=== PATIENT | male | born 1940 | race Caucasian/White ===

== ENCOUNTER 2016-11-27 22:09 | Inpatient (IN) | payer OTHER ==
[~2016-11-27] VITALS: Ht 193 cm; Wt 145.4 kg
[2016-11-27 23:02] LABS: HEMATOCRIT 46.2 % (38.0-50.0); MCH 29.5 PG (29.0-34.0); MCHC 31.2 G/DL (30.0-36.0); MCV 94.7 FL (86-99); MEAN PLAT.VOLUME 10.8 uM^3 (9.0-12.4); PLATELET COUNT 122 K/uL (156-360); RBC DIS.WIDTH-CV 16.1 % (11.8-14.6); RBC DIS.WIDTH-SD 56.5 % (39-53); RED BLOOD COUNT 4.88 M/uL (4.00-5.50); WHITE BLOOD COUNT 14.4 K/uL (4.1-10.2)
[2016-11-27 23:03] LABS: CHLORIDE 99 mEq/L (99-109); POTASSIUM 4.8 mEq/L (3.7-5.4); SODIUM 139 mEq/L (136-147)
[2016-11-27 23:05] LABS: GLUCOSE 77 mg/dL (70-99)
[2016-11-27 23:07] LABS: ANION GAP 14 MEQ/L (2-14); TOTAL BILIRUBIN 3.5 mg/dL (0.0-1.0)
[2016-11-27 23:09] LABS: ALKALINE PHOSPHATASE 60 IU/L (3-129); GFR ESTIMATE (CALCULATED) > 59 mL/min/
[2016-11-27 23:10] LABS: UREA NITROGEN (BUN) 26 mg/dL (9-23)
[2016-11-27 23:13] LABS: LIPASE 4 U/L (1.0-51.0)
[2016-11-27 23:40] LABS: INTER. NORMALIZED RATIO 1.8; PROTHROMBIN TIME 20.8 SEC (10.2-12.9)
[2016-11-27 23:43] LABS: PTT 41.1 SEC (25-37)
[2016-11-28] VITALS (24 sets, daily range): BP systolic 73–108; BP diastolic 44–72
[2016-11-28 00:11] LABS: ADD MIUA? YES; BILIRUBIN NEGATIVE; BLOOD MODERATE; COLOR AMBER ((YELLOW)); GLUCOSE (STRIP) NEGATIVE; KETONES NEGATIVE; LEUKOCYTES MODERATE; NITRITE NEGATIVE; PROTEIN (STRIP) 100; SPECIFIC GRAVITY 1.019 (1.000-1.030)
[2016-11-28 00:49] LABS: BASE EXCESS 1.3 mEq/L (-3 to +3); BICARBONATE 28.1 mEq/L (22-26); METHEMOGLOBIN 1.1 % (0-1.5); PCO2 52 mm Hg (35-45); PO2 69 mm Hg (80-100); pH 7.34 (7.35-7.45)
[2016-11-28 00:50] LABS: COMMENTS - BLOOD GASES C+A+; DEVICE NC; O2 FLOW 2 L/MIN; SITE RR; TOTAL RESP RATE 16 resp/min
[2016-11-28 00:56] LABS: WHITE BLOOD CELLS TNTC /HPF (0-5)
[2016-11-28 00:57] LABS: BACTERIA 3+ /HPF; EPITHELIAL CELLS RARE /HPF; MUCUS TRACE /LPF; UCUL ADDED? YES
[2016-11-28 00:58] LABS: CASTS NONE SEEN /LPF; CRYSTALS NONE SEEN
[2016-11-28] MEDS ORDERED: BACTRIM,SEPT1 TABLET PO (04:04)
[2016-11-28] MEDS ORDERED: LASIX20 MG PO (04:05)
[2016-11-28] MEDS ORDERED: COZAAR50 MG PO (04:06)
[2016-11-28] MEDS ORDERED: TYLENOL EXTRA500 MG PO (04:06)
[2016-11-28] MEDS ORDERED: LOPRESSOR25 MG PO (04:08)
[2016-11-28] MEDS ORDERED: COLACE100 MG PO (04:09)
[2016-11-28] MEDS ORDERED: ZOCOR10 MG PO (04:09)
[2016-11-28] MEDS ORDERED: PRILOSEC20 MG PO (04:09)
[2016-11-28] MEDS ORDERED: VENTOLIN HFA18 GM IH (04:10)
[2016-11-28 04:59] LABS: METH RESISTANT S AUREUS PCR POSITIVE (NEGATIVE)
[2016-11-28 05:00] LABS: PROBE CHECK PASS
[2016-11-28 08:46] LABS: EOSINOPHIL (%) 0 % (0-5); HEMATOCRIT 43.7 % (38.0-50.0); IMMATURE GRANULOCYTE (%) 0.5 % (0.0-0.7); IMMATURE GRANULOCYTE COUNT 0.1 K/uL; INSTRUMENT ABS NEUTROPHIL CT 10.8 K/uL; LYMPHOCYTE COUNT 0.6 K/uL (1.0-2.8); MCH 30.6 PG (29.0-34.0); MCHC 31.4 G/DL (30.0-36.0); MCV 97.8 FL (86-99); MEAN PLAT.VOLUME 11.3 uM^3 (9.0-12.4); MONOCYTE (%) 10.5 % (3-12); MONOCYTE COUNT 1.4 K/uL (0-0.8); NEUTROPHIL (%) 83.8 % (45-76); NEUTROPHIL COUNT 10.8 K/uL (1.8-6.4); PLATELET COUNT 104 K/uL (156-360); RBC DIS.WIDTH-CV 16.6 % (11.8-14.6); RBC DIS.WIDTH-SD 59.1 % (39-53); RED BLOOD COUNT 4.47 M/uL (4.00-5.50); WHITE BLOOD COUNT 12.9 K/uL (4.1-10.2)
[2016-11-28 09:11] LABS: ALKALINE PHOSPHATASE 50 IU/L (3-129); ANION GAP 7 MEQ/L (2-14); CHLORIDE 100 MEQ/L (99-109); GFR ESTIMATE (CALCULATED) > 59 mL/min/; GLUCOSE 91 mg/dL (70-99); SAMPLE HEMOLYSIS CHECK 0; SAMPLE ICTERIC CHECK 0; SAMPLE LIPEMIA CHECK 0; SODIUM 137 MEQ/L (136-147); TOTAL BILIRUBIN 2.7 MG/DL (0.0-1.0); UREA NITROGEN (BUN) 27 mg/dL (9-23)
[2016-11-28 15:59] LABS: TROP-I INTERPRETATION INDETERMINATE; TROPONIN-I 0.58 ng/mL (0.0-0.30)
[2016-11-29] VITALS (24 sets, daily range): BP systolic 86–129; BP diastolic 44–103
[2016-11-29 04:58] LABS: EOSINOPHIL (%) 0.2 % (0-5); HEMATOCRIT 46.7 % (38.0-50.0); IMMATURE GRANULOCYTE (%) 0.4 % (0.0-0.7); IMMATURE GRANULOCYTE COUNT 0.1 K/uL; INSTRUMENT ABS NEUTROPHIL CT 10.2 K/uL; LYMPHOCYTE COUNT 0.8 K/uL (1.0-2.8); MCH 29.5 PG (29.0-34.0); MCV 98.5 FL (86-99); MEAN PLAT.VOLUME 10.9 uM^3 (9.0-12.4); MONOCYTE (%) 9.9 % (3-12); MONOCYTE COUNT 1.2 K/uL (0-0.8); NEUTROPHIL (%) 83.2 % (45-76); NEUTROPHIL COUNT 10.2 K/uL (1.8-6.4); PLATELET COUNT 117 K/uL (156-360); RBC DIS.WIDTH-CV 16.2 % (11.8-14.6); RBC DIS.WIDTH-SD 59.5 % (39-53); RED BLOOD COUNT 4.74 M/uL (4.00-5.50); WHITE BLOOD COUNT 12.3 K/uL (4.1-10.2)
[2016-11-29 05:00] LABS: CHLORIDE 101 mEq/L (99-109); POTASSIUM 4.7 mEq/L (3.7-5.4); SODIUM 137 mEq/L (136-147)
[2016-11-29 05:02] LABS: GLUCOSE 96 mg/dL (70-99)
[2016-11-29 05:03] LABS: ANION GAP 9 MEQ/L (2-14)
[2016-11-29 05:05] LABS: ALKALINE PHOSPHATASE 57 IU/L (3-129)
[2016-11-29 05:06] LABS: GFR ESTIMATE (CALCULATED) > 59 mL/min/
[2016-11-29 05:07] LABS: UREA NITROGEN (BUN) 32 mg/dL (9-23)
[2016-11-29 05:08] LABS: TOTAL BILIRUBIN 2.2 mg/dL (0.0-1.0); TROP-I INTERPRETATION INDETERMINATE; TROPONIN-I 0.44 ng/mL (0.0-0.30)
[2016-11-30] VITALS (15 sets, daily range): BP systolic 91–132; BP diastolic 57–86
[2016-11-30 12:43] LABS: EOSINOPHIL (%) 1.3 % (0-5); EOSINOPHIL COUNT 0.1 K/uL (0-0.3); HEMATOCRIT 47.6 % (38.0-50.0); IMMATURE GRANULOCYTE (%) 0.5 % (0.0-0.7); LYMPHOCYTE COUNT 0.6 K/uL (1.0-2.8); MCH 29.3 PG (29.0-34.0); MCHC 29.2 G/DL (30.0-36.0); MCV 100.4 FL (86-99); MEAN PLAT.VOLUME 10.7 uM^3 (9.0-12.4); MONOCYTE (%) 14.9 % (3-12); MONOCYTE COUNT 1.2 K/uL (0-0.8); NEUTROPHIL (%) 75.5 % (45-76); PLATELET COUNT 124 K/uL (156-360); RBC DIS.WIDTH-CV 16.2 % (11.8-14.6); RBC DIS.WIDTH-SD 60.9 % (39-53); RED BLOOD COUNT 4.74 M/uL (4.00-5.50); WHITE BLOOD COUNT 7.9 K/uL (4.1-10.2)
[2016-11-30 13:22] LABS: ANION GAP 6 MEQ/L (2-14); CHLORIDE 101 MEQ/L (99-109); GFR ESTIMATE (CALCULATED) > 59 mL/min/; GLUCOSE 100 mg/dL (70-99); POTASSIUM 4.7 MEQ/L (3.7-5.4); SAMPLE HEMOLYSIS CHECK 0; SAMPLE ICTERIC CHECK 0; SAMPLE LIPEMIA CHECK 0; SODIUM 138 MEQ/L (136-147); UREA NITROGEN (BUN) 31 mg/dL (9-23)
[2016-12-01] VITALS (7 sets, daily range): BP systolic 105–138; BP diastolic 55–82
[2016-12-01 05:10] LABS: EOSINOPHIL (%) 0 % (0-5); HEMATOCRIT 47.5 % (38.0-50.0); IMMATURE GRANULOCYTE (%) 0.7 % (0.0-0.7); INSTRUMENT ABS NEUTROPHIL CT 5.2 K/uL; LYMPHOCYTE COUNT 0.2 K/uL (1.0-2.8); MCH 30.2 PG (29.0-34.0); MCHC 30.1 G/DL (30.0-36.0); MCV 100.4 FL (86-99); MEAN PLAT.VOLUME 11.5 uM^3 (9.0-12.4); MONOCYTE (%) 2.2 % (3-12); MONOCYTE COUNT 0.1 K/uL (0-0.8); NEUTROPHIL (%) 93.7 % (45-76); NEUTROPHIL COUNT 5.2 K/uL (1.8-6.4); PLATELET COUNT 119 K/uL (156-360); RBC DIS.WIDTH-CV 16.1 % (11.8-14.6); RBC DIS.WIDTH-SD 60.3 % (39-53); RED BLOOD COUNT 4.73 M/uL (4.00-5.50); WHITE BLOOD COUNT 5.5 K/uL (4.1-10.2)
[2016-12-01 05:29] LABS: TROP-I INTERPRETATION NEGATIVE; TROPONIN-I 0.14 ng/mL (0.0-0.30)
[2016-12-01 05:35] LABS: ANION GAP 5 MEQ/L (2-14); CHLORIDE 101 MEQ/L (99-109); GFR ESTIMATE (CALCULATED) > 59 mL/min/; GLUCOSE 136 mg/dL (70-99); POTASSIUM 4.9 MEQ/L (3.7-5.4); SAMPLE HEMOLYSIS CHECK 0; SAMPLE ICTERIC CHECK 0; SAMPLE LIPEMIA CHECK 0; SODIUM 138 MEQ/L (136-147); UREA NITROGEN (BUN) 28 mg/dL (9-23)
[2016-12-02 03:00] VITALS: BP 119/73
[2016-12-02 07:32] LABS: EOSINOPHIL (%) 0 % (0-5); IMMATURE GRANULOCYTE (%) 0.5 % (0.0-0.7); IMMATURE GRANULOCYTE COUNT 0.1 K/uL; INSTRUMENT ABS NEUTROPHIL CT 9.5 K/uL; LYMPHOCYTE COUNT 0.3 K/uL (1.0-2.8); MCH 30.6 PG (29.0-34.0); MCHC 31.8 G/DL (30.0-36.0); MONOCYTE (%) 5.3 % (3-12); MONOCYTE COUNT 0.6 K/uL (0-0.8); NEUTROPHIL (%) 91.4 % (45-76); NEUTROPHIL COUNT 9.5 K/uL (1.8-6.4); PLATELET COUNT 133 K/uL (156-360); RBC DIS.WIDTH-CV 16.3 % (11.8-14.6); RBC DIS.WIDTH-SD 57.4 % (39-53); RED BLOOD COUNT 4.57 M/uL (4.00-5.50); WHITE BLOOD COUNT 10.4 K/uL (4.1-10.2)
[2016-12-02 07:37] LABS: MCV 96.3 FL (86-99)
[2016-12-02 07:42] LABS: ANION GAP 6 MEQ/L (2-14); CHLORIDE 100 MEQ/L (99-109); GFR ESTIMATE (CALCULATED) > 59 mL/min/; GLUCOSE 129 mg/dL (70-99); POTASSIUM 4.5 MEQ/L (3.7-5.4); SAMPLE HEMOLYSIS CHECK 0; SAMPLE ICTERIC CHECK 0; SAMPLE LIPEMIA CHECK 0; SODIUM 138 MEQ/L (136-147); UREA NITROGEN (BUN) 37 mg/dL (9-23)
[2016-12-02 08:42] VITALS: BP 108/66
[2016-12-02 09:41] LABS: BASE EXCESS 7.5 mEq/L (-3 to +3); BICARBONATE 34.9 mEq/L (22-26); COMMENTS - BLOOD GASES A+C+; METHEMOGLOBIN 1.6 % (0-1.5); PCO2 59 mm Hg (35-45); PO2 52 mm Hg (80-100); SITE LR; pH 7.38 (7.35-7.45)
[2016-12-02 09:42] LABS: DEVICE NC; O2 FLOW 1 L/MIN
[2016-12-02 12:38] VITALS: BP 116/66
[2016-12-02 17:10] VITALS: BP 105/66
[2016-12-02 19:15] VITALS: BP 129/56
[2016-12-03] VITALS: BP 115/57
[2016-12-03 04:15] VITALS: BP 100/63
[2016-12-03 05:54] LABS: EOSINOPHIL (%) 0 % (0-5); IMMATURE GRANULOCYTE (%) 0.4 % (0.0-0.7); INSTRUMENT ABS NEUTROPHIL CT 8.3 K/uL; LYMPHOCYTE COUNT 0.3 K/uL (1.0-2.8); MCH 29.2 PG (29.0-34.0); MCHC 30.5 G/DL (30.0-36.0); MEAN PLAT.VOLUME 11.1 uM^3 (9.0-12.4); MONOCYTE (%) 7.9 % (3-12); MONOCYTE COUNT 0.7 K/uL (0-0.8); NEUTROPHIL (%) 88.6 % (45-76); NEUTROPHIL COUNT 8.3 K/uL (1.8-6.4); PLATELET COUNT 131 K/uL (156-360); RBC DIS.WIDTH-CV 16.2 % (11.8-14.6); RBC DIS.WIDTH-SD 57.1 % (39-53); RED BLOOD COUNT 4.48 M/uL (4.00-5.50); WHITE BLOOD COUNT 9.4 K/uL (4.1-10.2)
[2016-12-03 06:16] LABS: VANCOMYCIN, TROUGH 26.2 MCG/ML (10-20)
[2016-12-03 06:20] LABS: ALKALINE PHOSPHATASE 43 IU/L (3-129); ANION GAP 3 MEQ/L (2-14); CHLORIDE 100 MEQ/L (99-109); GFR ESTIMATE (CALCULATED) > 59 mL/min/; GLUCOSE 125 mg/dL (70-99); POTASSIUM 4.4 MEQ/L (3.7-5.4); SAMPLE HEMOLYSIS CHECK 0; SAMPLE ICTERIC CHECK 0; SAMPLE LIPEMIA CHECK 0; SODIUM 141 MEQ/L (136-147); UREA NITROGEN (BUN) 41 mg/dL (9-23)
[2016-12-03 08:01] LABS: BASE EXCESS 13.3 mEq/L (-3 to +3); CARBOXY HGB 2.8 % (0-5); METHEMOGLOBIN 1.7 % (0-1.5); pH 7.36 (7.35-7.45)
[2016-12-03 08:03] LABS: BICARBONATE 42.4 mEq/L (22-26); COMMENTS - BLOOD GASES A+C+; DEVICE CPAP; PCO2 75 mm Hg (35-45); PO2 72 mm Hg (80-100); SITE LR
[2016-12-03 08:04] LABS: CONTINUOUS POS AIRWAY PRESSURE 10 cm H2O; TOTAL RESP RATE 22 resp/min
[2016-12-03 08:30] VITALS: BP 94/64
[2016-12-03] MEDS ORDERED: HALDOL2 MG PO (14:34)
[2016-12-03] MEDS ORDERED: MORPHINE CON20 MG/M1 SL (14:34)
[2016-12-03] MEDS ORDERED: HYOSCYAMINE0.125 MG PO (14:34)
[2016-12-03] MEDS ORDERED: ATIVAN INTE2 MG/1 ML PO (14:34)
[2016-12-03] MEDS ORDERED: MITRAZOL 2% CRE45 GM TP (14:34)
[2016-12-03] MEDS ORDERED: PRILOSEC20 MG PO (14:34)
[2016-12-03] MEDS ORDERED: COLACE100 MG PO (14:34)
[2016-12-03 19:00] VITALS: BP 130/82
[2016-12-03 20:00] VITALS: BP 122/78
== END 2016-12-03 21:06 | DRG 871 ==
LOC: EME → EDBD 22:09 → EME 22:09 → 4WEST 11-28 02:56 → EDOF 11-28 02:56 → ENRESERV 11-28 02:58 → 4WEST 11-28 03:35 → ENRESERV 11-30 23:07 → 4WEST 11-30 23:28 → 4EAST 12-01 00:17 → ENRESERV 12-03 08:33 → 4WEST 12-03 08:35 → ENRESERV 12-03 08:35 → 4WEST 12-03 21:06
PROVIDERS: Emergency Medicine; Internal Medicine; Internal Medicine Cardiovascular Disease; Internal Medicine Critical Care Medicine; Internal Medicine Nephrology; Nurse Practitioner Family
DX: A41.9 Sepsis, unspecified organism (principal); R65.21 Severe sepsis with septic shock; J44.0 Chronic obstructive pulmonary disease with (acute) lower respiratory infection; J18.9 Pneumonia, unspecified organism; J20.9 Acute bronchitis, unspecified; J44.1 Chronic obstructive pulmonary disease with (acute) exacerbation; N39.0 Urinary tract infection, site not specified; B96.89 Other specified bacterial agents as the cause of diseases classified elsewhere; I33.0 Acute and subacute infective endocarditis; E87.2 Acidosis; E87.3 Alkalosis; E11.42 Type 2 diabetes mellitus with diabetic polyneuropathy; E86.1 Hypovolemia; G47.33 Obstructive sleep apnea (adult) (pediatric); I27.2 Other secondary pulmonary hypertension; I48.2 Chronic atrial fibrillation; I11.0 Hypertensive heart disease with heart failure; I50.9 Heart failure, unspecified; I25.9 Chronic ischemic heart disease, unspecified; I87.2 Venous insufficiency (chronic) (peripheral); M19.90 Unspecified osteoarthritis, unspecified site; I35.0 Nonrheumatic aortic (valve) stenosis; Z51.5 Encounter for palliative care; G47.10 Hypersomnia, unspecified; R10.30 Lower abdominal pain, unspecified; I44.4 Left anterior fascicular block; I42.0 Dilated cardiomyopathy; I77.0 Arteriovenous fistula, acquired; F05 Delirium due to known physiological condition; I24.8 Other forms of acute ischemic heart disease; E66.01 Morbid (severe) obesity due to excess calories; Z66 Do not resuscitate; Z68.42 Body mass index [BMI] 45.0-49.9, adult; Z87.891 Personal history of nicotine dependence; Z91.19 Patient's noncompliance with other medical treatment and regimen
CPT/HCPCS: 36600; 70450; 71010; 71250; 74177; 80048; 80053; 80200; 80202; 81003; 82140; 82803; 83605; 83690; 83735; 83880; 84484; 85025; 85027; 85610; 85651; 85730; 86140; 87040; 87077; 87086; 87186; 87641; 93005; 93306; 93971; 94640; 94640 76; 94660; 94799; 99202; 99281; 99285; C1751; J1160; J1250; J1650; J1940; J2543; J2930; J3260; J3370; J7050; J7120; J7512

== ENCOUNTER 2016-12-10 12:06 | Emergency (ER) | payer OTHER ==
[~2016-12-10] VITALS: Ht 190.5 cm; Wt 149.1 kg
[~2016-12-10 12:06] MED LIST: ATIVAN INTE2 MG/1 ML PO; BACTRIM,SEPT1 TABLET PO; COLACE100 MG PO; COZAAR50 MG PO; HALDOL2 MG PO; HYOSCYAMINE0.125 MG PO; LASIX20 MG PO; LOPRESSOR25 MG PO; MITRAZOL 2% CRE45 GM TP; MORPHINE CON20 MG/M1 SL; PRILOSEC20 MG PO; TYLENOL EXTRA500 MG PO; VENTOLIN HFA18 GM IH; ZOCOR10 MG PO
[2016-12-10 13:01] LABS: HEMATOCRIT 36.8 % (38.0-50.0); MCH 29.8 PG (29.0-34.0); MCHC 30.4 G/DL (30.0-36.0); MCV 97.9 FL (86-99); MEAN PLAT.VOLUME 11.7 uM^3 (9.0-12.4); PLATELET COUNT 120 K/uL (156-360); RBC DIS.WIDTH-CV 16.7 % (11.8-14.6); RBC DIS.WIDTH-SD 59.7 % (39-53); RED BLOOD COUNT 3.76 M/uL (4.00-5.50); WHITE BLOOD COUNT 8.4 K/uL (4.1-10.2)
[2016-12-10 13:11] LABS: CHLORIDE 98 mEq/L (99-109); POTASSIUM 4.7 mEq/L (3.7-5.4); SODIUM 143 mEq/L (136-147)
[2016-12-10 13:13] LABS: GLUCOSE 142 mg/dL (70-99)
[2016-12-10 13:14] LABS: ANION GAP 6 MEQ/L (2-14)
[2016-12-10 13:17] LABS: GFR ESTIMATE (CALCULATED) > 59 mL/min/; UREA NITROGEN (BUN) 43 mg/dL (9-23)
[2016-12-10 13:23] LABS: TROP-I INTERPRETATION NEGATIVE; TROPONIN-I 0.13 ng/mL (0.0-0.30)
[2016-12-10 16:48] VITALS: BP 108/72
== END 2016-12-10 17:26 ==
LOC: EME 12:06
PROVIDERS: Emergency Medicine
DX: R07.89 Other chest pain (principal); R60.0 Localized edema; I10 Essential (primary) hypertension; J44.9 Chronic obstructive pulmonary disease, unspecified; G47.33 Obstructive sleep apnea (adult) (pediatric); Z87.891 Personal history of nicotine dependence
CPT/HCPCS: 71010; 71275; 80048; 84484; 85027; 85379; 93005; 93971; 99281; 99285

== ENCOUNTER 2016-12-17 11:12 | Inpatient (IN) | payer OTHER ==
[~2016-12-17] VITALS: Ht 182.9 cm; Wt 153.6 kg
[2016-12-17] VITALS (9 sets, daily range): BP systolic 83–119; BP diastolic 52–77
[2016-12-17] MEDS ORDERED: TYLENOL WITH C1 EACH PO (12:02)
[2016-12-17] MEDS ORDERED: MICRO-K10 ME2 PO (12:05)
[2016-12-17 12:06] LABS: EOSINOPHIL (%) 0.8 % (0-5); EOSINOPHIL COUNT 0.1 K/uL (0-0.3); IMMATURE GRANULOCYTE (%) 0.8 % (0.0-0.7); IMMATURE GRANULOCYTE COUNT 0.1 K/uL; INSTRUMENT ABS NEUTROPHIL CT 5.1 K/uL; LYMPHOCYTE COUNT 0.5 K/uL (1.0-2.8); MCH 29.7 PG (29.0-34.0); MCHC 29.8 G/DL (30.0-36.0); MCV 99.8 FL (86-99); MEAN PLAT.VOLUME 12.4 uM^3 (9.0-12.4); MONOCYTE (%) 13.5 % (3-12); MONOCYTE COUNT 0.9 K/uL (0-0.8); NEUTROPHIL (%) 76.8 % (45-76); NEUTROPHIL COUNT 5.1 K/uL (1.8-6.4); NRBC (%) 0.5 /100 WBC (0-0); PLATELET COUNT 168 K/uL (156-360); RBC DIS.WIDTH-CV 18.6 % (11.8-14.6); RBC DIS.WIDTH-SD 65.8 % (39-53); RED BLOOD COUNT 4.51 M/uL (4.00-5.50); WHITE BLOOD COUNT 6.6 K/uL (4.1-10.2)
[2016-12-17 13:00] LABS: BASE EXCESS 9.7 mEq/L (-3 to +3); BICARBONATE 40.8 mEq/L (22-26); CARBOXY HGB 4.1 % (0-5); METHEMOGLOBIN 1.1 % (0-1.5)
[2016-12-17 13:01] LABS: COMMENTS - BLOOD GASES A+C+; DEVICE NC; O2 FLOW 5 L/MIN; PCO2 91 mm Hg (35-45); PO2 100 mm Hg (80-100); SITE LR; TOTAL RESP RATE 22 resp/min; pH 7.26 (7.35-7.45)
[2016-12-17 13:33] LABS: CHLORIDE 96 mEq/L (99-109); POTASSIUM 5.4 mEq/L (3.7-5.4); PTT 40.9 SEC (25-37); SODIUM 140 mEq/L (136-147)
[2016-12-17 13:35] LABS: GLUCOSE 81 mg/dL (70-99)
[2016-12-17 13:37] LABS: ANION GAP 15 MEQ/L (2-14); TOTAL BILIRUBIN 3.3 mg/dL (0.0-1.0)
[2016-12-17 13:39] LABS: ALKALINE PHOSPHATASE 94 IU/L (3-129); GFR ESTIMATE (CALCULATED) > 59 mL/min/
[2016-12-17 13:40] LABS: UREA NITROGEN (BUN) 48 mg/dL (9-23)
[2016-12-17 13:42] LABS: INTER. NORMALIZED RATIO 1.9; PROTHROMBIN TIME 21.1 SEC (10.2-12.9)
[2016-12-17 13:43] LABS: TROP-I INTERPRETATION NEGATIVE; TROPONIN-I 0.15 ng/mL (0.0-0.30)
[2016-12-17 14:08] LABS: ADD MIUA? YES; BILIRUBIN NEGATIVE; BLOOD SMALL; COLOR AMBER ((YELLOW)); GLUCOSE (STRIP) NEGATIVE; KETONES NEGATIVE; LEUKOCYTES NEGATIVE; NITRITE NEGATIVE; PROTEIN (STRIP) 100
[2016-12-17 14:12] LABS: BACTERIA NONE SEEN /HPF; EPITHELIAL CELLS NONE SEEN /HPF; MUCUS TRACE /LPF; RED BLOOD CELLS 0-5 /HPF (0-5); UCUL ADDED? NO; WHITE BLOOD CELLS 0-5 /HPF (0-5)
[2016-12-17 14:32] LABS: BASE EXCESS 10.1 mEq/L (-3 to +3); CARBOXY HGB 3.2 % (0-5); METHEMOGLOBIN 1.2 % (0-1.5)
[2016-12-17 14:33] LABS: PCO2 47 mm Hg (35-45); PO2 260 mm Hg (80-100); SITE LR; pH 7.48 (7.35-7.45)
[2016-12-17 14:36] LABS: COMMENTS - BLOOD GASES A+C+; FI02 60 %; MECHANICAL RATE 16 resp/min; MODE AC; PEEP 10 CM/H20; TIDAL VOLUME 600 ML; TOTAL RESP RATE 16 resp/min
[2016-12-17 19:55] LABS: METH RESISTANT S AUREUS PCR POSITIVE (NEGATIVE); PROBE CHECK PASS
[2016-12-18] VITALS (24 sets, daily range): BP systolic 90–124; BP diastolic 51–86
[2016-12-18 05:59] LABS: ALKALINE PHOSPHATASE 60 IU/L (3-129); ANION GAP 8 MEQ/L (2-14); CHLORIDE 104 MEQ/L (99-109); GFR ESTIMATE (CALCULATED) > 59 mL/min/; GLUCOSE 74 mg/dL (70-99); MAGNESIUM 1.8 mg/dl (1.3-2.7); SAMPLE HEMOLYSIS CHECK 0; SAMPLE ICTERIC CHECK 1; SAMPLE LIPEMIA CHECK 0; SODIUM 145 MEQ/L (136-147); UREA NITROGEN (BUN) 44 mg/dL (9-23)
[2016-12-18 06:00] LABS: POTASSIUM 4.3 MEQ/L (3.7-5.4)
[2016-12-18 06:06] LABS: EOSINOPHIL (%) 2.7 % (0-5); EOSINOPHIL COUNT 0.2 K/uL (0-0.3); HEMATOCRIT 44.9 % (38.0-50.0); IMMATURE GRANULOCYTE (%) 0.5 % (0.0-0.7); INSTRUMENT ABS NEUTROPHIL CT 6.2 K/uL; LYMPHOCYTE COUNT 0.4 K/uL (1.0-2.8); MCH 29.8 PG (29.0-34.0); MCV 96.1 FL (86-99); MONOCYTE COUNT 0.5 K/uL (0-0.8); NEUTROPHIL (%) 84.5 % (45-76); NEUTROPHIL COUNT 6.2 K/uL (1.8-6.4); RBC DIS.WIDTH-CV 18.8 % (11.8-14.6); RBC DIS.WIDTH-SD 62.8 % (39-53); RED BLOOD COUNT 4.67 M/uL (4.00-5.50); WHITE BLOOD COUNT 7.3 K/uL (4.1-10.2)
[2016-12-18 06:36] LABS: PLAT.SUFFICIENCY DECREASED; PLATELET CLUMPS PRESENT - PLATELET COUNTS APPEARS DECREASED
[2016-12-18 06:38] LABS: PLATELET COUNT UNABLE TO REPORT K/uL (156-360)
[2016-12-19] VITALS (24 sets, daily range): BP systolic 98–139; BP diastolic 62–86
[2016-12-19 02:48] LABS: EOSINOPHIL (%) 4.8 % (0-5); EOSINOPHIL COUNT 0.4 K/uL (0-0.3); HEMATOCRIT 43.4 % (38.0-50.0); IMMATURE GRANULOCYTE (%) 0.6 % (0.0-0.7); IMMATURE GRANULOCYTE COUNT 0.1 K/uL; INSTRUMENT ABS NEUTROPHIL CT 6.7 K/uL; LYMPHOCYTE COUNT 0.4 K/uL (1.0-2.8); MCH 29.3 PG (29.0-34.0); MCHC 30.9 G/DL (30.0-36.0); MEAN PLAT.VOLUME 11.4 uM^3 (9.0-12.4); MONOCYTE (%) 9.3 % (3-12); MONOCYTE COUNT 0.8 K/uL (0-0.8); NEUTROPHIL (%) 79.6 % (45-76); NEUTROPHIL COUNT 6.7 K/uL (1.8-6.4); RBC DIS.WIDTH-CV 19.6 % (11.8-14.6); RED BLOOD COUNT 4.57 M/uL (4.00-5.50); WHITE BLOOD COUNT 8.4 K/uL (4.1-10.2)
[2016-12-19 02:49] LABS: PLATELET COUNT 87 K/uL (156-360)
[2016-12-19 03:05] LABS: MAGNESIUM 1.5 mg/dL (1.3-2.7)
[2016-12-19 09:11] LABS: BASE EXCESS 7.2 mEq/L (-3 to +3); BICARBONATE 33.1 mEq/L (22-26); CARBOXY HGB 3.2 % (0-5); METHEMOGLOBIN 1.6 % (0-1.5); PCO2 51 mm Hg (35-45); pH 7.42 (7.35-7.45)
[2016-12-19 09:12] LABS: COMMENTS - BLOOD GASES C+; DEVICE VENT; FI02 30 %; MODE SPONT; PEEP 5 CM/H20; PO2 83 mm Hg (80-100); PRES. SUPPORT 12 CM/H2O; SITE RR; TIDAL VOLUME 450 ML; TOTAL RESP RATE 22 resp/min
[2016-12-19 10:38] LABS: ANION GAP 20 MEQ/L (2-14); CHLORIDE 112 MEQ/L (99-109); GFR ESTIMATE (CALCULATED) > 59 mL/min/; GLUCOSE 74 mg/dL (70-99); POTASSIUM 4.6 MEQ/L (3.7-5.4); UREA NITROGEN (BUN) 36 mg/dL (9-23)
[2016-12-19 10:41] LABS: SODIUM 154 MEQ/L (136-147)
[2016-12-20] VITALS (24 sets, daily range): BP systolic 87–131; BP diastolic 57–80
[2016-12-20 07:37] LABS: EOSINOPHIL (%) 7.8 % (0-5); EOSINOPHIL COUNT 0.6 K/uL (0-0.3); HEMATOCRIT 38.6 % (38.0-50.0); IMMATURE GRANULOCYTE (%) 0.4 % (0.0-0.7); INSTRUMENT ABS NEUTROPHIL CT 5.4 K/uL; LYMPHOCYTE COUNT 0.4 K/uL (1.0-2.8); MCH 29.7 PG (29.0-34.0); MCHC 30.3 G/DL (30.0-36.0); MEAN PLAT.VOLUME 11.8 uM^3 (9.0-12.4); MONOCYTE (%) 11.4 % (3-12); MONOCYTE COUNT 0.8 K/uL (0-0.8); NEUTROPHIL (%) 74.1 % (45-76); NEUTROPHIL COUNT 5.4 K/uL (1.8-6.4); PLATELET COUNT 86 K/uL (156-360); RBC DIS.WIDTH-CV 19.1 % (11.8-14.6); RBC DIS.WIDTH-SD 66.5 % (39-53); RED BLOOD COUNT 3.94 M/uL (4.00-5.50); WHITE BLOOD COUNT 7.3 K/uL (4.1-10.2)
[2016-12-20 08:13] LABS: ANION GAP 8 MEQ/L (2-14); CHLORIDE 105 MEQ/L (99-109); GFR ESTIMATE (CALCULATED) > 59 mL/min/; GLUCOSE 74 mg/dL (70-99); POTASSIUM 3.8 MEQ/L (3.7-5.4); SAMPLE HEMOLYSIS CHECK 0; SAMPLE ICTERIC CHECK 0; SAMPLE LIPEMIA CHECK 0; UREA NITROGEN (BUN) 24 mg/dL (9-23)
[2016-12-20 08:19] LABS: MAGNESIUM 2.2 mg/dl (1.3-2.7); SODIUM 142 MEQ/L (136-147)
[2016-12-20 23:06] LABS: Heparin Induced Plt Ab Negative (Negative)
[2016-12-21] VITALS (19 sets, daily range): BP systolic 87–129; BP diastolic 51–72
[2016-12-21 08:43] LABS: HEMATOCRIT 39.7 % (38.0-50.0); MCH 29.6 PG (29.0-34.0); MCV 98.8 FL (86-99); MEAN PLAT.VOLUME 11.7 uM^3 (9.0-12.4); PLATELET COUNT 85 K/uL (156-360); RBC DIS.WIDTH-CV 18.9 % (11.8-14.6); RBC DIS.WIDTH-SD 67.9 % (39-53); RED BLOOD COUNT 4.02 M/uL (4.00-5.50); WHITE BLOOD COUNT 6.5 K/uL (4.1-10.2)
[2016-12-21 09:06] LABS: ANION GAP 6 MEQ/L (2-14); CHLORIDE 104 MEQ/L (99-109); GFR ESTIMATE (CALCULATED) > 59 mL/min/; GLUCOSE 90 mg/dL (70-99); POTASSIUM 3.6 MEQ/L (3.7-5.4); SAMPLE HEMOLYSIS CHECK 0; SAMPLE ICTERIC CHECK 0; SAMPLE LIPEMIA CHECK 0; SODIUM 145 MEQ/L (136-147); UREA NITROGEN (BUN) 24 mg/dL (9-23)
[2016-12-21 15:54] LABS: UFH SRA Result Negative (Negative)
[2016-12-22] VITALS (17 sets, daily range): BP systolic 99–158; BP diastolic 61–96
[2016-12-22 09:15] LABS: EOSINOPHIL (%) 10.7 % (0-5); EOSINOPHIL COUNT 0.7 K/uL (0-0.3); HEMATOCRIT 38.2 % (38.0-50.0); IMMATURE GRANULOCYTE (%) 0.3 % (0.0-0.7); LYMPHOCYTE COUNT 0.5 K/uL (1.0-2.8); MCH 29.9 PG (29.0-34.0); MCHC 30.1 G/DL (30.0-36.0); MCV 99.5 FL (86-99); MEAN PLAT.VOLUME 11.5 uM^3 (9.0-12.4); MONOCYTE (%) 17.2 % (3-12); MONOCYTE COUNT 1.1 K/uL (0-0.8); PLATELET COUNT 88 K/uL (156-360); RBC DIS.WIDTH-CV 18.9 % (11.8-14.6); RED BLOOD COUNT 3.84 M/uL (4.00-5.50); WHITE BLOOD COUNT 6.3 K/uL (4.1-10.2)
[2016-12-22 09:32] LABS: ANION GAP 7 MEQ/L (2-14); CHLORIDE 104 MEQ/L (99-109); MAGNESIUM 1.9 mg/dl (1.3-2.7); POTASSIUM 3.5 MEQ/L (3.7-5.4); SAMPLE HEMOLYSIS CHECK 0; SAMPLE ICTERIC CHECK 0; SAMPLE LIPEMIA CHECK 0; SODIUM 144 MEQ/L (136-147)
[2016-12-22 09:38] LABS: GFR ESTIMATE (CALCULATED) > 59 mL/min/; GLUCOSE 103 mg/dL (70-99); UREA NITROGEN (BUN) 25 mg/dL (9-23)
[2016-12-23] VITALS (22 sets, daily range): BP systolic 76–144; BP diastolic 47–90
[2016-12-23 07:25] LABS: EOSINOPHIL (%) 5.2 % (0-5); EOSINOPHIL COUNT 0.3 K/uL (0-0.3); HEMATOCRIT 38.7 % (38.0-50.0); IMMATURE GRANULOCYTE (%) 0.8 % (0.0-0.7); IMMATURE GRANULOCYTE COUNT 0.1 K/uL; INSTRUMENT ABS NEUTROPHIL CT 4.5 K/uL; LYMPHOCYTE COUNT 0.3 K/uL (1.0-2.8); MCH 29.8 PG (29.0-34.0); MCHC 29.7 G/DL (30.0-36.0); MCV 100.3 FL (86-99); MEAN PLAT.VOLUME 10.6 uM^3 (9.0-12.4); MONOCYTE (%) 15.6 % (3-12); NEUTROPHIL (%) 72.5 % (45-76); NEUTROPHIL COUNT 4.5 K/uL (1.8-6.4); PLATELET COUNT 89 K/uL (156-360); RBC DIS.WIDTH-CV 18.7 % (11.8-14.6); RBC DIS.WIDTH-SD 67.7 % (39-53); RED BLOOD COUNT 3.86 M/uL (4.00-5.50); WHITE BLOOD COUNT 6.1 K/uL (4.1-10.2)
[2016-12-23 07:46] LABS: ALKALINE PHOSPHATASE 52 IU/L (3-129); ANION GAP 5 MEQ/L (2-14); CHLORIDE 105 MEQ/L (99-109); GFR ESTIMATE (CALCULATED) > 59 mL/min/; GLUCOSE 111 mg/dL (70-99); MAGNESIUM 1.8 mg/dl (1.3-2.7); POTASSIUM 3.9 MEQ/L (3.7-5.4); SAMPLE HEMOLYSIS CHECK 1; SAMPLE ICTERIC CHECK 0; SAMPLE LIPEMIA CHECK 0; SODIUM 142 MEQ/L (136-147); UREA NITROGEN (BUN) 28 mg/dL (9-23)
[2016-12-24] VITALS (23 sets, daily range): BP systolic 96–160; BP diastolic 55–85
[2016-12-24 05:58] LABS: HEMATOCRIT 35.4 % (38.0-50.0); MCH 30.2 PG (29.0-34.0); MCHC 29.9 G/DL (30.0-36.0); MCV 100.9 FL (86-99); MEAN PLAT.VOLUME 11.6 uM^3 (9.0-12.4); PLATELET COUNT 90 K/uL (156-360); RBC DIS.WIDTH-CV 18.9 % (11.8-14.6); RBC DIS.WIDTH-SD 69.2 % (39-53); RED BLOOD COUNT 3.51 M/uL (4.00-5.50); WHITE BLOOD COUNT 6.9 K/uL (4.1-10.2)
[2016-12-24 06:29] LABS: ANION GAP 3 MEQ/L (2-14); CHLORIDE 104 MEQ/L (99-109); GFR ESTIMATE (CALCULATED) > 59 mL/min/; GLUCOSE 155 mg/dL (70-99); POTASSIUM 3.8 MEQ/L (3.7-5.4); SAMPLE HEMOLYSIS CHECK 0; SAMPLE ICTERIC CHECK 0; SAMPLE LIPEMIA CHECK 0; SODIUM 140 MEQ/L (136-147); UREA NITROGEN (BUN) 37 mg/dL (9-23)
[2016-12-24 06:38] LABS: MAGNESIUM 2.1 mg/dl (1.3-2.7)
[2016-12-24 14:39] LABS: BASE EXCESS 12.3 mEq/L (-3 to +3); CARBOXY HGB 2.6 % (0-5); METHEMOGLOBIN 1.5 % (0-1.5); PO2 86 mm Hg (80-100); pH 7.33 (7.35-7.45)
[2016-12-24 14:41] LABS: PCO2 77 mm Hg (35-45)
[2016-12-24 14:42] LABS: BICARBONATE 40.6 mEq/L (22-26); COMMENTS - BLOOD GASES C+; DEVICE VENT; FI02 30 %; MODE TC; PEEP 5 CM/H20; SITE RR; TOTAL RESP RATE 24 resp/min
[2016-12-25] VITALS (23 sets, daily range): BP systolic 111–151; BP diastolic 63–98
[2016-12-25 13:52] LABS: BASE EXCESS 12.5 mEq/L (-3 to +3); BICARBONATE 39.6 mEq/L (22-26); CARBOXY HGB 2.9 % (0-5); COMMENTS - BLOOD GASES A+C+; DEVICE 980; FI02 30 %; METHEMOGLOBIN 1.6 % (0-1.5); MODE SPONT(TC); PCO2 64 mm Hg (35-45); PEEP 5 CM/H20; PO2 91 mm Hg (80-100); SITE LR; TOTAL RESP RATE 22 resp/min
[2016-12-26] VITALS (23 sets, daily range): BP systolic 94–181; BP diastolic 62–116
[2016-12-26 05:31] LABS: CHLORIDE 104 mEq/L (99-109); POTASSIUM 3.7 mEq/L (3.7-5.4); SODIUM 143 mEq/L (136-147)
[2016-12-26 05:34] LABS: ANION GAP 3 MEQ/L (2-14); GLUCOSE 103 mg/dL (70-99)
[2016-12-26 05:37] LABS: GFR ESTIMATE (CALCULATED) > 59 mL/min/
[2016-12-26 05:38] LABS: UREA NITROGEN (BUN) 47 mg/dL (9-23)
[2016-12-26 21:52] LABS: BASE EXCESS 9.4 mEq/L (-3 to +3); BICARBONATE 37.3 mEq/L (22-26); COMMENTS - BLOOD GASES C+A+; DEVICE BIPAP 15/8; METHEMOGLOBIN 1.7 % (0-1.5); MODE SPONT; O2 FLOW 10 L/MIN; PCO2 66 mm Hg (35-45); PO2 75 mm Hg (80-100); SITE LR; pH 7.36 (7.35-7.45)
[2016-12-27] VITALS (11 sets, daily range): BP systolic 102–139; BP diastolic 62–81
[2016-12-27 09:07] LABS: HEMATOCRIT 40.3 % (38.0-50.0); MCH 30.6 PG (29.0-34.0); MCV 101.8 FL (86-99); MEAN PLAT.VOLUME 12.1 uM^3 (9.0-12.4); RBC DIS.WIDTH-CV 18.6 % (11.8-14.6); RED BLOOD COUNT 3.96 M/uL (4.00-5.50); WHITE BLOOD COUNT 10.3 K/uL (4.1-10.2)
[2016-12-27 09:18] LABS: PLATELET COUNT 142 K/uL (156-360)
[2016-12-27 10:36] LABS: ANION GAP 9 MEQ/L (2-14); CHLORIDE 102 MEQ/L (99-109); GFR ESTIMATE (CALCULATED) > 59 mL/min/; GLUCOSE 92 mg/dL (70-99); MAGNESIUM 2.3 mg/dl (1.3-2.7); SAMPLE HEMOLYSIS CHECK 0; SAMPLE ICTERIC CHECK 0; SAMPLE LIPEMIA CHECK 0; SODIUM 145 MEQ/L (136-147); UREA NITROGEN (BUN) 49 mg/dL (9-23)
[2016-12-27 10:39] LABS: POTASSIUM 4.5 MEQ/L (3.7-5.4)
[2016-12-28] VITALS: BP 112/68
[2016-12-28 04:00] VITALS: BP 111/65
[2016-12-28 05:50] LABS: EOSINOPHIL (%) 2.6 % (0-5); EOSINOPHIL COUNT 0.2 K/uL (0-0.3); HEMATOCRIT 40.9 % (38.0-50.0); IMMATURE GRANULOCYTE (%) 1.3 % (0.0-0.7); IMMATURE GRANULOCYTE COUNT 0.1 K/uL; INSTRUMENT ABS NEUTROPHIL CT 6.3 K/uL; LYMPHOCYTE COUNT 0.8 K/uL (1.0-2.8); MCH 29.3 PG (29.0-34.0); MCHC 28.6 G/DL (30.0-36.0); MCV 102.5 FL (86-99); MEAN PLAT.VOLUME 12.3 uM^3 (9.0-12.4); MONOCYTE (%) 13.4 % (3-12); MONOCYTE COUNT 1.2 K/uL (0-0.8); NEUTROPHIL COUNT 6.3 K/uL (1.8-6.4); NRBC (%) 0.3 /100 WBC (0-0); PLATELET COUNT 171 K/uL (156-360); RBC DIS.WIDTH-CV 18.3 % (11.8-14.6); RBC DIS.WIDTH-SD 69.2 % (39-53); RED BLOOD COUNT 3.99 M/uL (4.00-5.50); WHITE BLOOD COUNT 8.7 K/uL (4.1-10.2)
[2016-12-28 06:14] LABS: ANION GAP 6 MEQ/L (2-14); CHLORIDE 100 MEQ/L (99-109); GFR ESTIMATE (CALCULATED) > 59 mL/min/; GLUCOSE 75 mg/dL (70-99); POTASSIUM 4.3 MEQ/L (3.7-5.4); SAMPLE HEMOLYSIS CHECK 0; SAMPLE ICTERIC CHECK 0; SAMPLE LIPEMIA CHECK 0; SODIUM 143 MEQ/L (136-147); UREA NITROGEN (BUN) 56 mg/dL (9-23)
[2016-12-28 08:00] VITALS: BP 105/71
[2016-12-28] MEDS ORDERED: LOPRESSOR50 MG PO (09:59)
[2016-12-28 12:00] VITALS: BP 98/68
[2016-12-28 16:00] VITALS: BP 99/68
== END 2016-12-28 17:10 | disposition short-term general hospital (02) | DRG 870 ==
LOC: EME 11:12 → ENRESERV 14:38 → EDOF 14:41 → 4WEST 14:41 → ENRESERV 14:44 → 4WEST 15:56 → ENRESERV 12-26 18:42 → CANRESERV 12-26 18:42 → 4WEST 12-28 17:10
PROVIDERS: Emergency Medicine; Hospitalist; Internal Medicine; Internal Medicine Critical Care Medicine; Obstetrics & Gynecology; Specialist
DX: A41.9 Sepsis, unspecified organism (principal); J18.9 Pneumonia, unspecified organism; R65.20 Severe sepsis without septic shock; Z68.42 Body mass index [BMI] 45.0-49.9, adult; J96.21 Acute and chronic respiratory failure with hypoxia; I27.2 Other secondary pulmonary hypertension; E46 Unspecified protein-calorie malnutrition; J44.1 Chronic obstructive pulmonary disease with (acute) exacerbation; I50.9 Heart failure, unspecified; J44.0 Chronic obstructive pulmonary disease with (acute) lower respiratory infection; I11.0 Hypertensive heart disease with heart failure; I48.2 Chronic atrial fibrillation; M19.90 Unspecified osteoarthritis, unspecified site; I35.0 Nonrheumatic aortic (valve) stenosis; E66.01 Morbid (severe) obesity due to excess calories; I07.1 Rheumatic tricuspid insufficiency; E87.2 Acidosis; I38 Endocarditis, valve unspecified; I42.9 Cardiomyopathy, unspecified; G47.33 Obstructive sleep apnea (adult) (pediatric); Z87.891 Personal history of nicotine dependence; L97.921 Non-pressure chronic ulcer of unspecified part of left lower leg limited to breakdown of skin
CPT/HCPCS: 31500; 36600; 70450; 71010; 80048; 80053; 80202; 81003; 82803; 83605; 83735; 83880; 84100; 84484; 85025; 85027; 85610; 85730; 86022 90; 87040; 87070; 87205; 87641; 93005; 93306; 94002; 94003; 94640; 94640 76; 94660; 94760; 94799; 97530 GO; 97530 GP; 99202; 99281; 99285; C1753; J0330; J0692; J1644; J1650; J1652; J1940; J1956; J2250; J2270; J2543; J2704; J3370; J3475; J7040; J7050; J7120; S0028